=== PATIENT | female | born 1930 | race Hispanic/Latino ===

== ENCOUNTER 2018-07-25 09:14 | Outpatient (CLI) | payer MEDICARE ==
[2018-07-30 12:57] LABS: Vitamin D, 25-OH, D2 <4 ng/mL
== END 2018-07-25 09:15 | disposition home or self-care (01) ==
LOC: LAB 09:14
PROVIDERS: ATTEND Internal Medicine
DX: E55.9 Vitamin D deficiency, unspecified (principal); E78.2 Mixed hyperlipidemia
CPT/HCPCS: 36415; 82306; 82465